=== PATIENT | female | born 1965 | race Two or more races ===

== ENCOUNTER 2024-01-03 20:35 | Emergency (ER) | payer OTHER ==
[~2024-01-03] VITALS: Ht 175.3 cm; Wt 95.3 kg
[2024-01-03] MEDS ORDERED: DIOVAN320 MG (21:36)
[2024-01-03] MEDS ORDERED: TOPROL XL50 M1 (21:37)
[2024-01-03] MEDS ORDERED: LANTUS SOL100 UNIT/1 (21:37)
[2024-01-03] MEDS ORDERED: JARDIANCE25 MG (21:37)
[2024-01-03] MEDS ORDERED: NIFEDIPINE20 MG (21:37)
[2024-01-03] MEDS ORDERED: OZEMPIC0.25 MG/02 (21:37)
[2024-01-03] MEDS ORDERED: METFORMIN HCL500 M3 (21:37)
[2024-01-03] MEDS ORDERED: CATAPRES0.3 MG (21:37)
[2024-01-03] MEDS ORDERED: HUMULIN R500 UNIT/2 (21:37)
[2024-01-03] MEDS ORDERED: LEXAPRO5 MG (21:38)
[2024-01-03] MEDS ORDERED: LATANOPROST2.5 ML (21:38)
[2024-01-03] MEDS ORDERED: CRESTOR20 MG (21:38)
[2024-01-03] MEDS ORDERED: KERENDIA20 MG (21:38)
[2024-01-03] MEDS ORDERED: PLAVIX75 MG (21:38)
[2024-01-04] MEDS ORDERED: ORPHENADRINE CITRATE 30 MG/ML AMPUL IM STA (00:48)
[2024-01-04] MEDS ORDERED: KETOROLAC TROMETHAMINE 60 MG VIAL IM STA (00:48)
== END 2024-01-04 03:38 | disposition home or self-care (01) ==
LOC: ER 20:36
DX: G24.3 Spasmodic torticollis (principal); R07.89 Other chest pain; Z88.8 Allergy status to other drugs, medicaments and biological substances; M50.30 Other cervical disc degeneration, unspecified cervical region; I10 Essential (primary) hypertension; E11.9 Type 2 diabetes mellitus without complications; Z79.4 Long term (current) use of insulin; Z79.84 Long term (current) use of oral hypoglycemic drugs